=== PATIENT | male | born 1995 | race Caucasian/White ===

== ENCOUNTER 2020-06-06 16:21 | Emergency (ER) | payer MEDICAID ==
[~2020-06-06] VITALS: Ht 165.1 cm; Wt 68.2 kg
[2020-06-06] MEDS ORDERED: ERYTHROMYCIN 0.5% 3.5 GM TUBE OPHTHALMIC OINTMENT OS ONE (18:00)
[2020-06-06 18:26] VITALS: BP 130/80
== END 2020-06-06 18:42 | disposition home or self-care (01) ==
LOC: EMS 16:21
DX: H00.015 Hordeolum externum left lower eyelid (principal); F17.210 Nicotine dependence, cigarettes, uncomplicated

== ENCOUNTER 2024-07-19 09:20 | Emergency (ER) | payer MEDICAID, OTHER ==
[~2024-07-19] VITALS: Ht 160 cm; Wt 63.6 kg
[2024-07-19 09:27] VITALS: TEMP 99.8
[2024-07-19 10:25] LABS: COVID AG,FIA SOURCE NASAL SWAB
[2024-07-19 10:41] LABS: INFLUENZA TYPE A NEGATIVE FOR TYPE A (NEGATIVE); INFLUENZA TYPE B NEGATIVE FOR TYPE B (NEGATIVE); SARS-COV2 (COVID) ANTIGEN,FIA Negative (Negative)
[2024-07-19] MEDS ORDERED: GUAI100L96 PO (12:06)
[2024-07-19] MEDS ORDERED: IBUP-1492 PO (12:06)
[2024-07-19 12:55] VITALS: BP 116/60; PULSE 86; RESP 18; O2SAT 99
== END 2024-07-19 13:21 | disposition home or self-care (01) ==
LOC: EMS 09:21
DX: H61.23 Impacted cerumen, bilateral (principal); J02.8 Acute pharyngitis due to other specified organisms; B97.89 Other viral agents as the cause of diseases classified elsewhere; Z20.822 Contact with and (suspected) exposure to COVID-19
CPT/HCPCS: 69209; 87430; 87804; 99283